=== PATIENT | male | born 1945 | race Caucasian/White ===

== ENCOUNTER 2016-05-23 08:17 | Outpatient (CLI) | payer MEDICARE, OTHER ==
[~2016-05-23 08:17] MED LIST: AMLO2.5T PO; BYETTA250 MCG/ML SC; GEMFIBROZIL600 M1 OR; GLIPIZIDE 5MG TA5 MG PO; GLYBURIDE5 M1 PO; LANTUS INS100 UNITS/ SC; LISINOPRIL40 MG PO; PERCOCET 5/3251 EACH PO; PRAVASTATIN 20M20 MG PO; PREDNISONE 20MG20 MG PO; RANITIDINE HCL150 MG PO
[2016-05-23 08:37] LABS: HEMOGLOBIN 13.9 g/dL (14.1-18.0); LYMPH # 1.3 K/mm3 (0.7-4.5); LYMPH % 25.8 % (10-50)
[2016-05-23 08:40] LABS: BUN 18 mg/dL (7-18)
[2016-05-23 08:41] LABS: GFR (ESTIMATED) 55 ML/MIN (>60)
--- NOTE | 2016-05-24 09:18 | RADIOLOGY REPORT PS360 ---
CT CHEST W/ CONTRAST INDICATION: Follow-up lymphoma LYMPHOMA ORDERING PHYSICIAN: Luis M Lambert MD PATIENT AGE: 70 years COMPARISON: 11/23/2015 TECHNIQUE: Axial images are obtained with IV contrast. Sagittal and coronal reformatted images are reviewed as well. FINDINGS: Incidental note is made of prominent soft tissues around the sternoclavicular joint on both sides consistent with prominent pannus formation as an incidental finding. Previously noted nodular opacity in the right upper lobe medially has enlarged now measuring 18 x 16 mm compared to 6 mm on the previous exam. Adenopathy or developing lung carcinoma is a consideration. There are few scattered small lymph nodes within the mediastinum not significantly changed. No mediastinal adenopathy. The esophagus is somewhat thickened throughout its course which is a nonspecific finding. Regular areas of consolidation are present in the right lower lobe posteriorly measuring 3.5 cm and in the lateral aspect of the right middle lobe measuring up to 1.3 cm. This may be due to areas of pneumonia. The left lung is clear. No effusions. No evidence of aortic aneurysm or dissection. No central pulmonary embolus apparent. There are mild changes in the thoracic spine. IMPRESSION: 1. Enlarging right perihilar nodule. This is suspicious for neoplasm or adenopathy. This is not accessible for percutaneous biopsy possibly accessible for biopsy with bronchoscopy. The lesion is central. 2. New lobular areas of soft tissue density in the right lower lobe posteriorly and in the right middle lobe. This could be due to areas of consolidation from pneumonia. One cannot exclude the possibility of neoplasm.
--- NOTE | 2016-05-24 09:52 | RADIOLOGY REPORT PS360 ---
CT ABD PELVIS W/ CONTRAST CLINICAL INDICATION: Follow-up lymphoma LYMPHOMA ORDERING PHYSICIAN: Luis M Lambert MD PATIENT AGE: 70 years COMPARISON: 11/23/2015 TECHNIQUE: Axial images obtained with sagittal and coronal reformats. PROCEDURE: Oral Contrast: Redicat IV Contrast: 75 mL's of Isovue-[id number] performed in conjunction with the chest CT. FINDINGS: The liver, spleen, pancreas, and adrenal glands have an unremarkable appearance. Multiple gallstones are present. The kidneys have an unremarkable appearance. No hydronephrosis or obstructing ureteral calculus. No retroperitoneal adenopathy. There are scattered small lymph nodes in the retroperitoneum which are stable. No intestinal obstruction or free air. Scattered small mesenteric lymph nodes are noted which are unchanged. The larger of the lymph nodes are present in the right mid abdominal region with some mild thickening in the mesentery's at this area. This is not significantly changed. Soft tissue density once again noted in the right lower quadrant measuring approximately 2.2 cm not significantly changed. No new areas of adenopathy are evident. There is sigmoid diverticulosis but no evidence of diverticulitis. There is mild amount retained colonic feces. No acute bony anomalies are apparent. IMPRESSION: 1. Overall no change in the mild mesenteric adenopathy. 2. No new areas of adenopathy. 3. Cholelithiasis. 4. Overall stable CT appearance of the abdomen and pelvis
== END 2016-05-23 09:12 | disposition home or self-care (01) ==
LOC: COP 08:17 → RAD 09:00 → COP 09:00
PROVIDERS: Internal Medicine
DX: C85.93 Non-Hodgkin lymphoma, unspecified, intra-abdominal lymph nodes (principal)
CPT/HCPCS: J1642; Q9967

== ENCOUNTER 2016-06-26 08:17 | Outpatient (CLI) | payer MEDICARE, OTHER ==
[2016-06-26 09:05] LABS: HEMOGLOBIN 13.2 g/dL (14.1-18.0); LYMPH # 1.1 K/mm3 (0.7-4.5); LYMPH % 32.7 % (10-50)
== END 2016-06-26 09:00 | disposition home or self-care (01) ==
LOC: COP 08:17
PROVIDERS: Internal Medicine
DX: C85.93 Non-Hodgkin lymphoma, unspecified, intra-abdominal lymph nodes (principal); Z51.81 Encounter for therapeutic drug level monitoring
CPT/HCPCS: J1642

== ENCOUNTER → 2017-02-22 | Outpatient (CLI) | payer MEDICARE, OTHER ==
--- NOTE | 2017-02-22 13:57 | RADIOLOGY REPORT PS360 ---
CT CHEST W/O CONTRAST HISTORY: CRYPTOCOCCAL PNEUMONITIS ORDERING PHYSICIAN: Davi Banda MD PATIENT AGE: 71 years TECHNIQUE: Axial images are obtained without contrast and compared to 05/23/2016 exam FINDINGS: No mediastinal or hilar mass or adenopathy is evident. There are coronary artery calcifications. No pericardial thickening apparent. The previously described soft tissue density in the right suprahilar region is smaller consistent with improvement in right perihilar adenopathy. There is a right subclavian Mediport catheter present with the tip in the region of the superior vena cava.. The previously noted irregular opacity in the right lung base within the right middle lobe is once again noted and may be slightly less prominent compared to the previous exam. There is some minimal cavitation noted at this region. The consolidation in the right lung base posteriorly has shown moderate improvement with only minimal irregular density noted in the region probably due to postinflammatory scarring. Faint nodular opacity is present in the region as well nonspecific measuring 3 mm. Continued follow-up recommended to confirm stability of this process. Upper abdominal images show multiple gallstones. No acute bony anomalies. There are degenerative changes in the thoracic spine. IMPRESSION: 1. There is been an overall improvement in the irregular consolidation in the right lower lobe with some residual irregular density noted in that region which may be due to postinflammatory scarring. 2. Nodular opacity remains in the right middle lobe posteriorly only slightly improved. There is some minimal cavitation at this area. 3. Interval improvement in the right perihilar adenopathy. 4. Coronary artery disease. Consider continued follow-up to confirm stability of the above-mentioned abnormalities.
== END ==
LOC: RAD 07:24
DX: B45.0 Pulmonary cryptococcosis (principal)